=== PATIENT | female | born 2005 | race Caucasian/White ===

== ENCOUNTER → 2024-11-09 11:39 | Outpatient (CLI) | payer OTHER, SELFPAY ==
--- NOTE | 2024-11-09 11:46 | DI.RAD.S_ITS ---
PROCEDURE: XR FINGER LT MIN 2V INDICATIONS: Smashed finger on boat TECHNIQUE: AP hand, 2 views of the left 3rd finger(s) acquired. COMPARISON: None. FINDINGS: Bones: There are no fracture or other osseous abnormalities Joints: The joint spaces are normal in width and alignment without arthritic change. Soft tissues: No soft tissue abnormality. IMPRESSION: Normal. Dictated by: Ajay Leyva M.D. on 11/10/2024 at 11:04 Approved by: Ajay Leyva M.D. on 11/10/2024 at 11:05
== END ==
PROVIDERS: Referring Provider Nurse Practitioner Family; Visit Provider Nurse Practitioner Family
DX: S60.032A Contusion of left middle finger without damage to nail, initial encounter (principal); W22.8XXA Striking against or struck by other objects, initial encounter
CPT/HCPCS: 73140